=== PATIENT | male | born 1990 | race Caucasian/White ===

== ENCOUNTER → 2020-12-10 12:38 | Outpatient (CLI) | payer OTHER, MEDICAID, SELFPAY ==
--- NOTE | 2020-12-10 14:07 | DI.MRI.S_ITS ---
PROCEDURE: MR THORACIC SPINE WO/W CON INDICATIONS: MS TECHNIQUE: Noncontrast sagittal T1 spin echo and T2 fast spin echo, sagittal STIR, axial T1 and T2 fast spin echo through the thoracic spine. After the administration of contrast, axial and sagittal T1 spin echo with fat saturation through the thoracic spine. COMPARISON: [facility], MR, MR MS BRAIN WITH/WITHOUT CONTRAST, 07/12/2020, 14:12. [facility], MR, MR CERVICAL SPINE WITH/WITHOUT CONTRAST, 07/12/2020, 14:12. [facility], CR, XR LUMBAR SPINAL PUNCTURE DIAGNOSTIC, 07/05/2020, 15:57. [facility], MR, MR CERVICAL SPINE WITHOUT CONTRAST, 05/24/2020, 12:30. [facility], MR, MR BRAIN WITHOUT CONTRAST, 05/24/2020, 12:30. FINDINGS: Image quality: Excellent. Alignment and curvature: There is normal bony alignment. Marrow: Marrow is of normal overall signal. No acute vertebral body compression fractures. Spinal cord: Visualized spinal cord is of normal size, without abnormal enhancement. However, on both STIR and T2 sequences there are ill-defined patchy areas of heterogeneous signal throughout the visualized lower cervical as well as thoracic spine. Paraspinous soft tissues: No paravertebral masses or abnormal enhancement. Miscellaneous: Central canal and foramina appear widely patent at all scanned levels. Prominent midthoracic epidural lipomatosis is present. IMPRESSION: 1. Ill-defined patchy areas of abnormal signal on T2 and STIR sequences within the loop visualized lower cervical and thoracic spine. These areas are nonenhancing and consistent with given history of demyelinating disease. Dictated by: Mary Cardenas M.D. on 12/10/2020 at 14:05 Approved by: Mary Cardenas M.D. on 12/10/2020 at 14:14
== END ==
PROVIDERS: PCP Family Medicine; Referring Provider Psychiatry & Neurology Neurology; Visit Provider Psychiatry & Neurology Neurology
DX: G35 Multiple sclerosis (principal)
CPT/HCPCS: 72157

== ENCOUNTER → 2021-08-16 13:00 | Outpatient (CLI) | payer OTHER, MEDICAID, SELFPAY ==
--- NOTE | 2021-08-16 | DI.MRI.S_ITS ---
PROCEDURE: MR THORACIC SPINE WO/W CON INDICATIONS: MS TECHNIQUE: Noncontrast sagittal T1 spin echo and T2 fast spin echo, sagittal STIR, axial T1 and T2 fast spin echo through the thoracic spine. After the administration of contrast, axial and sagittal T1 spin echo with fat saturation through the thoracic spine. COMPARISON: [facility], , MR THORACIC SPINE WO/W CON, 12/10/2020, 12:57. FINDINGS: Image quality: Motion degraded exam which limits evaluation for cord lesion. Alignment and curvature: There is normal bony alignment. Marrow: Marrow is of normal overall signal. No acute vertebral body compression fractures. Spinal cord: There is no significant change in appearance of patchy increased T2 signal in the cord when compared with the prior study. No abnormal enhancement is identified, although it should be noted that motion degradation is pronounced on the postcontrast sequences Paraspinous soft tissues: No paravertebral masses or abnormal enhancement. Miscellaneous: Central canal and foramina appear widely patent at all scanned levels. IMPRESSION: Motion degraded exam with no gross change in ill-defined patchy areas of abnormal T2/STIR signal in the thoracic spinal cord. No evidence of pathologic enhancement. Dictated by: Anmol Jones M.D. on 08/16/2021 at 14:59 Approved by: Anmol Jones M.D. on 08/16/2021 at 15:01
--- NOTE | 2021-08-16 | DI.MRI.S_ITS ---
PROCEDURE: MR CERVICAL SPINE WO/W CON INDICATIONS: MS TECHNIQUE: Noncontrast sagittal T1 spin echo and T2 fast spin echo, sagittal STIR, sagittal PD fast spin echo, foraminal oblique sagittal T2 fast spin echo, axial gradient echo or T2 fast spin echo through the cervical spine. After the administration of contrast, sagittal and axial T1 spin echo with fat saturation through the cervical spine. COMPARISON: [facility], MR, MR CERVICAL SPINE WITH/WITHOUT CONTRAST, 07/12/2020, 14:12. [facility], MR, MR CERVICAL SPINE WITHOUT CONTRAST, 05/24/2020, 12:30. [facility], MR, MR THORACIC SPINE WO/W CON, 08/16/2021, 14:01. [facility], MR, MR HEAD/BRAIN WO/W CON, 08/16/2021, 13:19. FINDINGS: Image quality: This examination is limited by involuntary motion artifact. Alignment and curvature: There is normal bony alignment. Marrow: Marrow demonstrates normal overall signal. Spinal cord: Visualized spinal cord is normal in size. Numerous foci of abnormal T2 weighted hyperintensity can be seen within the cervical cord, which are best seen on series 3. Lesions are overall more discretely seen on the prior examination, as there is abundant motion artifact seen on the current study. No definite postcontrast enhancement can be seen. No cerebellar tonsillar herniation. Paraspinous soft tissues: No paravertebral masses or suspicious enhancement. Underlying degenerative changes are seen, which are somewhat poorly evaluated on current study, secondary to motion artifact. However, there are regarded to be stable. IMPRESSION: Motion limited study demonstrating stable T2 hyperintense plaques within the cervical spinal cord which is consistent with the known clinical history of multiple sclerosis. Dictated by: Pedro Chung M.D. on 08/16/2021 at 14:18 Approved by: Pedro Chung M.D. on 08/16/2021 at 14:21
--- NOTE | 2021-08-16 | DI.MRI.S_ITS ---
PROCEDURE: MR HEAD/BRAIN WO/W CON INDICATIONS: MS TECHNIQUE: Noncontrast sagittal and axial FLAIR, axial and coronal T2 fast spin echo, axial VIBE, axial gradient echo, axial diffusion and ADC through the brain. After the administration of contrast, axial and coronal VIBE with fat saturation through the brain. COMPARISON: [facility], MR, MR MS BRAIN WITH/WITHOUT CONTRAST, 07/12/2020, 14:12. [facility], MR, MR BRAIN WITHOUT CONTRAST, 05/24/2020, 12:30. [facility], MR, MR THORACIC SPINE WO/W CON, 08/16/2021, 14:01. [facility], MR, MR CERVICAL SPINE WO/W CON, 08/16/2021, 13:40. FINDINGS: Image quality: This examination is limited by involuntary motion artifact. CSF spaces: Ventricles are normal in size and shape. Basal cisterns are patent. No extra-axial fluid collections. Brain: Numerous abnormal foci of T2 weighted hyperintensity can be seen within the white matter, primarily within the periventricular and deep white matter. Numerous juxtacortical lesions are also seen. There is involvement of the corpus callosum. There is involvement the brainstem. Cerebellar lesions are also seen. Several of the larger lesions demonstrate low signal on T1 weighted imaging. These lesions do not enhance. Compared to the 07/12/2020 examination, the burden of white matter lesions appears progressed. No intracranial bleeds or mass effects. Montaño-white matter interface appears intact. No abnormal intracranial enhancement. Diffusion weighted images show no acute ischemic insults. Brainstem appears normal. Normal intravascular flow voids are present. Skull and face: Calvarial marrow signal is normal. Orbits appear normal. Sinuses: Mucous retention cysts are seen within the maxillary sinuses. Areas of mild mucosal thickening can be seen within the paranasal sinuses. IMPRESSION: Motion limited study demonstrating interval progression of abnormal T2 hyperintense white matter lesions, which are consistent with the given history of multiple sclerosis. No abnormal enhancement is seen. Dictated by: Pedro Chung M.D. on 08/16/2021 at 14:14 Approved by: Pedro Chung M.D. on 08/16/2021 at 14:18
== END ==
PROVIDERS: PCP Family Medicine; Referring Provider Psychiatry & Neurology Neurology; Visit Provider Psychiatry & Neurology Neurology
DX: G35 Multiple sclerosis (principal)
CPT/HCPCS: 70553; 72156; 72157; A9579